=== PATIENT | male | born 1970 | race African-American/Black ===

== ENCOUNTER 2021-01-20 21:55 | Emergency (ER) | payer MEDICAID ==
[~2021-01-20] VITALS: Ht 190.5 cm; Wt 97.0 kg
[~2021-01-20 21:55] MED LIST: HYDR-3927; INDO25OR
[2021-01-20] MEDS ORDERED: ZIPRASIDONE HCL 20MG CAPSULE PO STA (23:44)
[2021-01-20] MEDS ORDERED: DIPHENHYDRAMINE 50MG CAPSULE PO STA (23:44)
[2021-01-20] MEDS ORDERED: OLANZAPINE 10 MG/VIAL IM STA (23:44)
[2021-01-20] MEDS ORDERED: LORAZEPAM 0.5MG TABLET PO ONE (23:45)
[2021-01-21] MEDS ORDERED: TETANUS, DIPHTHERIA, PERTUSSIS VAC/PF 0.5ML (>7YR OLD) IM ONE
[2021-01-21 00:05] LABS: BASOPHILS % 0.1 % (0.0-2.0); EOSINOPHILS % 0.1 % (0.0-5.0); HEMATOCRIT. 41.6 % (42.0-52.0); HEMOGLOBIN. 13.7 g/dL (14.0-18.0); LYMPHOCYTES % 8.2 % (20.0-50.0); MEAN CORPUSCULAR HEMOGLOBIN 31.7 pg (28.0-32.0); MEAN CORPUSCULAR VOLUME 96.1 fL (80.0-94.0); MONOCYTES % 11.3 % (2.0-8.0); NEUTROPHILS % 80.3 % (40.0-76.0); PLATELET 253 x1000/uL (130-400); RED BLOOD CELL COUNT 4.33 mill/uL (4.7-6.1); RED CELL DISTRIBUTION WIDTH 14.9 % (11.6-14.6)
[2021-01-21 00:11] LABS: CHLORIDE 106 mEq/L (98-107)
[2021-01-21 00:15] LABS: ETHANOL BLOOD < 10 mg/dL
[2021-01-21 05:15] LABS: CLARITY URINE CLEAR (CLEAR); COLOR URINE DARK YELLOW (YELLOW); KETONES URINE 2+ (NEGATIVE); LEUKOCYTE ESTERASE URINE NEGATIVE (NEGATIVE); NITRITE URINE NEGATIVE (NEGATIVE); OCCULT BLOOD URINE NEGATIVE (NEGATIVE); PH URINE 5.5 (4.5-8.0); PROTEIN URINE 1+ (NEGATIVE); SPECIFIC GRAVITY URINE 1.036 (1.005-1.030)
[2021-01-21 05:27] LABS: *AMPHETAMINES SCREEN URINE PRESUMTIVE POSITIVE (NEGATIVE); *BARBITURATES SCREEN URINE NEGATIVE (NEGATIVE); *BENZODIAZEPINES SCREEN URINE NEGATIVE (NEGATIVE); *COCAINE SCREEN URINE PRESUMTIVE POSITIVE (NEGATIVE)
[2021-01-21 05:29] LABS: CANNABINOID URINE SCREEN NEGATIVE (NEGATIVE); METHADONE URINE SCREEN NEGATIVE (NEGATIVE); OPIATES URINE SCREEN NEGATIVE (NEGATIVE); PHENCYCLIDINE URINE SCREEN PRESUMTIVE POSITIVE (NEGATIVE)
[2021-01-21] MEDS ORDERED: IBUP-2028 MT (18:59)
[2021-01-22] MEDS ORDERED: OLAN5TAB3 MT (13:12)
[2021-01-22] MEDS ORDERED: CITA10TA16 PO (13:13)
[2021-01-22 14:00] VITALS: BP 130/75
[2021-01-22] MEDS ORDERED: IBUP-2028 MT (22:44)
== END 2021-01-22 14:42 | disposition home or self-care (01) ==
LOC: ER 21:55
DX: R45.851 Suicidal ideations (principal); I10 Essential (primary) hypertension; F14.10 Cocaine abuse, uncomplicated
CPT/HCPCS: 36415; 73130; 80053; 80307; 80320; 80329; 85025; 90471; 93005; 96372; 99285; G0480

== ENCOUNTER 2021-01-22 20:44 | Emergency (ER) | payer MEDICAID ==
[~2021-01-22] VITALS: Ht 182.9 cm; Wt 86.0 kg
[~2021-01-22 20:44] MED LIST changes: +CITA10TA16 PO; +IBUP-2028 MT; +OLAN5TAB3 MT
[2021-01-22] MEDS ORDERED: IBUPROFEN 600MG TABLET PO ONE (21:45)
[2021-01-22] MEDS ORDERED: IBUP-2028 MT (22:44)
[2021-01-23 01:22] VITALS: BP 156/81
== END 2021-01-23 01:25 | disposition home or self-care (01) ==
LOC: ER 20:44
DX: S93.691A Other sprain of right foot, initial encounter (principal); S62.397A Other fracture of fifth metacarpal bone, left hand, initial encounter for closed fracture; W11.XXXA Fall on and from ladder, initial encounter; Y93.89 Activity, other specified; Y92.89 Other specified places as the place of occurrence of the external cause
CPT/HCPCS: 29515; 73610; 73620; 99284